=== PATIENT | male | born 1955 | race African-American/Black ===

== ENCOUNTER → 2023-02-02 16:20 | Outpatient (BNVA) | payer OTHER, SELFPAY | PROVIDERS: PCP Registered Nurse; Referring Provider Registered Nurse; Visit Provider Internal Medicine Cardiovascular Disease | DX: R06.02 Shortness of breath (principal) | CPT/HCPCS: 36415; 80048; 83880 ==

== ENCOUNTER 2023-02-12 11:29 | Outpatient (CLI) | payer OTHER, SELFPAY ==
--- NOTE | 2023-02-12 12:15 | USCV_ITS ---
Dustin Quintero Age: 67 Gender: M : 1955 Exam Date: 02/12/2023 11:58 Ordering Phys: Liam Phipps MD ([email or web address]) Technologist: JESSICA [place] [facility] [place] SHORTNESS OF BREATH AND HTN BP: 172 / 94 HR: 79 Rhythm: Sinus Technical Quality: Adequate MEASUREMENTS (Male / Female) Normal Values 2D ECHO LVOT Diameter 2.0 cm LV Ejection Fraction MOD 2C 62.6 % LV Ejection Fraction 2C AL 68.1 % LA Diameter 3.7 cm LA Width 3.3 cm LA Height 4.3 cm RA Width 3.2 cm RA Height 4.9 cm Aorta at Sinotubular Diameter 2.3 cm IVC Diameter 1.6 cm M-MODE Aortic Annulus Diameter 3.1 cm LA Ao Ratio MM 1.1 MV E Point Septal Separation 0.5 cm DOPPLER AV Peak Velocity 170.3 cm/s LVOT Peak Velocity 102.0 cm/s AV Area Cont Eq vti 1.7 cm squared AV Area Cont Eq pk 1.9 cm squared MV Peak Velocity 108.0 cm/s MV Area PHT 4.4 cm squared Mitral E to A Ratio 0.9 MV E' Velocity 48.5 cm/s Mitral E to MV E' Ratio 7.5 Mitral E to LV E' Lateral Ratio 7.7 Mitral E to LV E' Septal Ratio 7.4 TR Peak Velocity 210.4 cm/s TR Peak Gradient 17.7 mmHg TR Mean Velocity 171.9 cm/s TR Mean Gradient 12.5 mmHg TR Velocity Time Integral 54.4 cm TV Peak E Velocity 48.0 cm/s Right Atrial Pressure 3.0 mmHg Pulmonary Artery Systolic Pressu 20.7 mmHg PV Peak Velocity 100.0 cm/s RV Acceleration Time 0.2 s RV Ejection Time 0.3 s RV AcT/ET 0.6 FINDINGS Left Ventricle Normal left ventricular size and systolic function, EF 64 %. No regional wall motion abnormalities. Grade I/IV diastolic dysfunction (abnormal relaxation filling pattern), normal to mildly elevated filling pressures. Right Ventricle The right ventricle is normal in size and function. Right Atrium The right atrium is normal in size. Left Atrium Mildly increased left atrial size. Mitral Valve Mild mitral valve regurgitation. Aortic Valve No gross abnormalities noted Tricuspid Valve Trace tricuspid valve regurgitation. Pulmonic Valve Pulmonic valve not well visualized. Pericardium Normal pericardium without effusion. Aorta Normal ascending aorta dimension. IVC The inferior vena cava appears normal. CONCLUSIONS Normal left ventricular size and systolic function, EF 64 %. No regional wall motion abnormalities. Grade I/IV diastolic dysfunction (abnormal relaxation filling pattern), normal to mildly elevated filling pressures. Mildly increased left atrial size. Mild mitral valve regurgitation. Trace tricuspid valve regurgitation. There is no pericardial effusion. There are no intracardiac masses. No similar previous studies are available for comparison Dr Liam Phipps MD [facility] (Electronically Signed) Final Date: 12 February 2023 18:04 S
== END 2023-02-12 11:30 | disposition home or self-care (01) ==
PROVIDERS: PCP Registered Nurse; Visit Provider Internal Medicine Cardiovascular Disease
DX: R06.09 Other forms of dyspnea (principal); R06.02 Shortness of breath; I51.89 Other ill-defined heart diseases; I51.7 Cardiomegaly; I34.0 Nonrheumatic mitral (valve) insufficiency; I10 Essential (primary) hypertension
CPT/HCPCS: 93306

== ENCOUNTER 2024-04-17 13:00 | Emergency (ER) | payer OTHER, SELFPAY ==
[2024-04-17 13:01] VITALS: BP 168/100; PULSE 102; TEMP 36.6; O2SAT 97; BMI 23.5
--- NOTE | 2024-04-17 13:07 | ECG_ITS ---
[employer] Test Date: 2024-04-17 Pat Name: Dustin Quintero Department: Room: Gender: Male Plc Technician: : 1955 Requested By: Edwin Mancuso Order Number: [id number] Cleo MD: LAURA WHITE Measurements Intervals [place] Rate: 88 P: 68 PA: 174 QRS: 4 QRSD: 95 T: 29 QT: 366 QTc: 444 Interpretive Statements SINUS RHYTHM WITH OCCASIONAL VENTRICULAR PREMATURE COMPLEXES INCOMPLETE RIGHT BUNDLE BRANCH BLOCK [90+ ms QRS DURATION, TERMINAL R IN V1/V2, 40+ ms S IN I/aVL/V4/V5/V6] NONSPECIFIC T-WAVE ABNORMALITY No previous ECG available for comparison Electronically Signed On 04-17-2024 18:53:24 ENERGY CONSERVATION DIRECTOR by LAURA WHITE [id number]
--- NOTE | 2024-04-17 13:08 | ED_ITS ---
HPI - Syncope 2 General: Chief Complaint: Syncope Stated Complaint: syncope Time Seen by Provider: 04/17/24 13:04 Source: patient and EMS Mode of arrival: EMS History of Present Illness: This patient was transported from his workplace after suffering a witnessed episode of syncope. It was noted by coworkers that he appeared to be sweaty and then had an episode of loss of consciousness and was noted to have foaming of his mouth. There was no shaking or seizure activity reported to EMS. EMS arrived on scene found him to be awake in sinus rhythm and had a normal blood glucose. He was transported to the emergency department. Patient states he has been working a lot and is tired. He denies any recent illness. He currently denies any headache, chest pain, shortness of breath. He states he ate and drank this morning. He states he has taken his normal blood pressure medicine this morning but has not taken his midday blood pressure medications. He has not a tobacco user and denies any alcohol use. Had prior back surgery but no other significant hospitalizations. Denies any history of syncope in the past. Denies any focal numbness weakness difficulty with speech etc. Denies any history of a seizure disorder. States he has been sleeping normally. Description of event: incontinence Prodromal symptoms: diaphoresis Witnessed: Yes - by Bystander Associated symptoms: Reports no associated symptoms; Deny abdominal pain, chest pain, fever(s), headache(s) or nausea Treatments prior to arrival: none Related Data Home Medications Medication Instructions Recorded Confirmed amlodipine 10 mg tablet 10 mg PO DAILY 02/02/23 04/17/24 lisinopril 10 mg tablet 10 mg PO DAILY 02/02/23 04/17/24 metformin 1,000 mg tablet 1,000 mg PO DAILY 02/02/23 04/17/24 glipizide 10 mg tablet, extended 10 mg PO DAILY 04/17/24 04/17/24 release 24 hr losartan 100 1 tab PO DAILY 04/17/24 04/17/24 mg-hydrochlorothiazide 25 mg tablet Previous Rx's Medication Instructions Recorded hydralazine 25 mg tablet 25 mg PO TID #90 tabs 02/02/23 Allergies Allergy/AdvReac Type Severity Reaction Status Date / Time No Known Allergies Allergy Unverified 02/02/23 12:21 Review of Systems 2 Const: Denies: fever(s) or chills Eyes: Denies: change in vision ENMT: Denies: odynophagia, nasal discharge or nasal congestion Card: Reports: syncope; Denies: chest pain or palpitations Resp: Denies: dyspnea, productive cough or non-productive cough GI: Denies: abdominal pain, nausea, vomiting, hematemesis, diarrhea or melena : Denies: flank pain, difficulty urinating, dysuria or urinary frequency Musc: Denies: neck pain, back pain, extremity pain or extremity swelling Skin/Breast: Denies: rash Neuro: Denies: headache(s), numbness in extremities, weakness in extremities, confusion or Slurred speech present Thomas/Lymph: Denies: easy bruising or easy bleeding PFSH ED 2 PFSH: Medical History Diabetes Physical Exam 2 Narrative: EXAM NARRATIVE: The patient is alert in no acute distress makes good eye contact. Answers questions and declarative 2-3 word sentences but accurate answers. Const: COMMON NORMALS: no acute distress, average body habitus and healthy appearing GENERAL APPEARANCE: cooperative HENMT: COMMON NORMALS: atraumatic, Normal nasal mucous membranes and turbinates present, moist oral mucous membranes and oropharynx normal HEAD & SCALP: atraumatic FACE & SINUS: normal facial exam and face symmetric N OSE: Normal nasal mucous membranes and turbinates present Eye: COMMON NORMALS: Equal, round and reactive pupils present, EOMs intact bilaterally and conjunctivae normal CONJUNCTIVA: Yes conjunctivae normal P UPIL: Yes Equal, round and reactive pupils present Neck/C-Spine: COMMON NORMALS: full ROM and no lymphadenopathy CERVICAL SPINE: Yes cervical ROM normal, No Cervical spine tenderness, No step off deformity, No Paracervical muscle tenderness and No Trapezius muscle tenderness Chest: COMMONS NORMALS: normal inspection of the chest and normal palpation of entire chest wall Resp: COMMON NORMALS: normal respiratory effort, No retractions, No use of accessory muscles and clear to auscultation bilaterally AUSCULTATION: clear to auscultation bilaterally Cardio: COMMON NORMALS: regular rate, regular rhythm, No murmurs present (Cardio) and Peripheral pulses 2+ throughout RATE: regular rate RHYTHM: r egular rhythm PERIPHERAL PULSES: Peripheral pulses 2+ throughout GI: COMMON NORMALS: Normal to inspection, nondistended, normoactive bowel sounds present, Soft to palpation and non-tender INSPECTION: Yes central obesity PALPATION: Yes Soft to palpation and Yes Hernia present umbilical (Nontender nonprotuberant) : COMMON NORMALS: Yes no CVA tenderness BLADDER/KIDNEY EXAM: Yes no CVA tenderness Back/Pelvis: COMMON NORMALS: no CVA tenderness, thoracic and lumbar spine normal to inspection, no thoracic nor lumbar tenderness and thoraco-lumbar ROM normal Extremity: COMMON NORMALS: normal to inspection, full ROM, capillary refill normal, no joint enlargement and no calf tenderness Neuro: COMMON NORMALS: moves all extremities, no focal motor deficits and no sensory deficits noted CRANIAL NERVES: Yes CN normal except as noted S PEECH: speech normal Skin: COMMON NORMALS: no rashes or lesions noted, no wounds, turgor normal and no petechiae GENERAL SKIN EXAM: no rashes or lesions noted and turgor normal Course 2 Reevaluation(s): Reevaluation #1: Initial labs noted to be remarkable for slight elevation in troponin without EKG changes as well as an elevation in his BUN/creatinine ratio with some mild KAYLEIGH. Nurse also reports that EMS told her that he did have a history of hypercoagulability or DVT in the past. Will go ahead and add on D-dimer as well as give him a liter of IV fluids and reassess. Obviously have to trend his troponins to ensure there is no evidence of ACS. Time: 14:12 Reevaluation #2: Patient remained stable received IV fluids and continued observation without any evidence of arrhythmia. He ambulated unaided without any difficulty with normal gait. All tests were reviewed both he and his family and he is stable to be discharged at this time for outpatient follow-up with good return precautions reviewed. Time: 17:15 Vital Signs: Vital signs: Vital Signs Temperature 97.8 F 04/17/24 13:01 Pulse Rate 93 04/17/24 16:00 Blood Pressure 155/82 04/17/24 16:00 Pulse Oximetry 97 04/17/24 16:00 Oxygen Delivery Me thod Room Air 04/17/24 16:00 MDM - Syncope Medical Decision Making Patient presented as noted in the HPI. Patient sounds like he had a syncopal episode with some resultant short-term seizure activity and loss of continence without any history of seizure disorder. Workup and differential included potential causes to include arrhythmia, profound anemia, intercranial hemorrhage, volume depletion etc. Patient has no current medical records within this facility. Workup of sickle cell trait. No history of thalassemia either and so it is unknown whether this is an acute or chronic anemia although his RDW would suggest this is more chronic in nature as he had no history of hematochezia or melena etc. No evidence of arrhythmia, as ACS were noted while in the emergency department. His CT scan was reassuring as well without any evidence of intracranial hemorrhage or obvious mass effect etc. patient remained stable while in the emergency department. It was all reviewed in detail with the patient and his family who arrived later in the visit. He is suitable and safe for discharge at this time to have outpatient recheck in 1 week for repeat chemistry as well as CBC. We also discussed return precautions. Advised to increase fluid intake to help ensure that he does not continue to be volume depleted with his antihypertensive regimen. Medical Records Was notable that he had elevation in his BUN and creatinine without any background or basis to determine if this is acute process or chronic in nature however his BUN suggest that he had some volume depletion. He also had a mild anemia with decreased indices and review of this with the patient and the family revealed there was no history of sickle cell trait. No history of thalassemia either and so it is unknown whether this is an acute or chronic anemia although his RDW would suggest this is more chronic in nature as he had no history of hematochezia or melena etc. No evidence of arrhythmia, as ACS were noted while in the emergency department. His CT scan was reassuring as well without any evidence of intracranial hemorrhage or obvious mass effect etc.h Lab Data I reviewed the patient's lab results. 04/17/24 13:17 04/17/24 13:17 Radiology Impressions Chest X-Ray 04/17/24 13:18 Impression: Atherosclerosis. Head CT 04/17/24 13:18 IMPRESSION: 1. No acute intracranial hemorrhage or edema. 2. Mild cerebral atrophy and small vessel ischemic disease. No large territory infarct. Laboratory Results WBC 6.65 10^3/uL (3.29-11.43) 04/17/24 13:17 RBC 5.36 10^6/uL (3.85-5.65) 04/17/24 13:17 Hgb 10.60 g/dL (11.27-16.99) L 04/17/24 13:17 Hct 35.4 % (37-53) L 04/17/24 13:17 MCV 66.0 fl (82-101) L 04/17/24 13:17 MCH 19.8 pg (27-33) L 04/17/24 13:17 MCHC 29.9 g/dL (30-55) L 04/17/24 13:17 RDW 14.8 % (12.1-15.1) 04/17/24 13:17 Plt Count 264 10^3/cmm (157-399) 04/17/24 13:17 MPV 9.8 fL (7.4-10.4) 04/17/24 13:17 Neut % (Auto) 64.0 % 04/17/24 13:17 Lymph % (Auto) 25.3 % 04/17/24 13:17 [place] % (Auto) 8.7 % 04/17/24 13:17 Eos % (Auto) 1.1 % 04/17/24 13:17 Baso % (Auto) 0.6 % 04/17/24 13:17 Neut # (Auto) 4.26 10^3/uL (1.8-7.7) 04/17/24 13:17 Lymph # (Auto) 1.7 10^3/uL (0.8-4.8) 04/17/24 13:17 [place] # (Auto) 0.6 10^3/uL (0.2-0.9) 04/17/24 13:17 Eos # (Auto) 0.1 10^3/uL (0.0-0.8) 04/17/24 13:17 Baso # (Auto) 0.0 10^3/uL (0.0-0.1) 04/17/24 13:17 Nucleated RBC % (auto) 0 % 04/17/24 13:17 Nucleated RBCs # 0.0 /100WBC 04/17/24 13:17 D-Dimer 0.47 ug/mLFEU (0-0.59) 04/17/24 14:33 Sodium 135 mmol/L (136-145) L 04/17/24 13:17 Potassium 4.1 mmol/L (3.5-5.1) 04/17/24 13:17 Chloride 100 mmol/L (98-107) 04/17/24 13:17 Carbon Dioxide 22 mmol/L (22-29) 04/17/24 13:17 Anion Gap 17.1 (5-19) 04/17/24 13:17 BUN 29 mg/dL (8-23) H 04/17/24 13:17 Creatinine 1.4 mg/dL (0.7-1.2) H 04/17/24 13:17 GFR Calculation 61.0 mL/min (90-130) L 04/17/24 13:17 Glucose 150 mg/dL (65-115) H 04/17/24 13:17 Calculated Osmolality 289 mOsm/kg (285-295) 04/17/24 13:17 Calcium 9.0 mg/dL (8.5-10.5) 04/17/24 13:17 Total Bilirubin 0.3 mg/dL (0.15-1.2) 04/17/24 13:17 AST 15 U/L (0-40) 04/17/24 13:17 ALT 12 U/L (0-41) 04/17/24 13:17 Alkaline Phosphatase 58 U/L (40-130) 04/17/24 13:17 Troponin T Baseline 21 ng/L (0-15) H 04/17/24 13:17 Troponin T 120 Minute 17.76 ng/L (0-15) H 04/17/24 15:03 Delta Troponin T -3.24 ABS# (0-10) L 04/17/24 15:03 Total Protein 6.8 g/dL (6.6-8.7) 04/17/24 13:17 Albumin 4.1 g/dL (3.5-5.2) 04/17/24 13:17 Globulin 2.7 g/dL (1.3-4.6) 04/17/24 13:17 All radiology interpretation(s) finalized by discharge EKG Data EKG 1: I personally reviewed and interpreted this EKG as follows: Interpretation: Contemporaneous review of resting EKG reveals ventricular rate of 88 bpm consistent with sinus rhythm. Normal RI interval, QRS duration, corrected QT interval. Normal axis. No acute ST-T wave changes noted at this time. EKG 2: I personally reviewed and interpreted this EKG as follows: Interpretation: Second EKG this visit reveals a ventricular rate of 100 bpm. Has normal RI interval, QRS duration, corrected QT interval. Normal axis. Borderline sinus tachycardia without any dynamic changes from previous tracing. Discharge Plan Discharge Patient Disposition: Home Clinical Impression: Volume depletion Syncope Qualifiers: Syncope type: unspecified Qualified Code(s): R55 - Syncope and collapse Anemia Qualifiers: Anemia type: unspecified type Qualified Code(s): D64.9 - Anemia, unspecified Condition: Stable Prescriptions: No Action amlodipine 10 mg tablet 10 mg PO DAILY metformin 1,000 mg tablet 1,000 mg PO DAILY lisinopril 10 mg tablet 10 mg PO DAILY hydralazine 25 mg tablet 25 mg PO TID Qty: 90 5RF glipizide 10 mg tablet extended release 24hr 10 mg PO DAILY losartan-hydrochlorothiazide 100-25 mg tablet 1 tab PO DAILY Discharge Orders: Discharge ED (Routine); Ordered 04/17/24 Ordered By: Edwin Mancuso Referrals: Amy Ding [Primary Care Provider] - 1 week Discharge Diet: Usual diet Discharge Activity: Increase activity as tolerated Patient Instructions: Opioid Safety, Pain Management Activity Restrictions/Additional Instructions: As we discussed while you are in the emergency department you have a mild anemia which is undetermined whether it is a chronic condition for you or something new. For this reason it is important that you recheck with your doctor next week to have another blood test performed. You also have evidence that your kidney function is abnormal and this should also be tested at your doctor in 1 week. You should drink at least 2 quarts of water daily in addition to your other intake and take all your usual prescribed medication. If you develop any recurrent symptoms such as lightheadedness dizziness, blood in your stools black tarry stools or other concerns at any time you should return to this or the nearest emergency department immediately otherwise you should see your doctor in 1 week. Coding Level of Care Code ED At Risk Paraprofessional for Meek [employer]
--- NOTE | 2024-04-17 13:18 | CT_ITS ---
WS: [id number] CT HEAD NONCONTRAST HISTORY: syncope and fall TECHNIQUE: Contiguous axial imaging performed through the brain. Bone and soft tissue windows. Sagitt al and coronal reformats reviewed. All CT scans at [facility] use at least one of these dose optimization techniques: automated exposure control; mA and/or kV adjustment per patient size (includ es targeted exams where dose is matched to clinical indication); or iterative reconstruction. DLP: 1125.98 mGy.cm COMPARISON: None available. No acute intracranial hemorrhage, midline shift or mass effect. Mild symmetric edema and small vessel disease. No focal edema or acute infarct identified. Ventricles: Normal size with no hydrocephalus. No inferior displacement of the cerebellar tonsils. Paranasal sinuses: As visualized are clear. Mastoid air cells: Well pneumatized. Calvarium and scalp: Skull is intact with no soft tissue edema or swelling. CT/CT head wo con* [id number] IMPRESSION: 1. No acute intracranial hemorrhage or edema. 2. Mild cerebral atrophy and small vessel ischemic disease. No large territory infarct.
--- NOTE | 2024-04-17 13:18 | XR_ITS ---
WS: [id number] Portable AP upright chest, 04/17/2024 Clinical Data: syncope Comparison: None. Findings: No nodules, masses or effusions are seen. The heart is normal. The pulmonary vascularity is not increased. No pneumonia or pneumothorax is seen. There is elevation of the right diaphragm. Kiara tor leads are on the chest wall. The aortic arch and descending thoracic aorta show mild tortuosity. XR/XR chest 1V portable [id number] Impression: Atherosclerosis.
[2024-04-17 13:31] LABS: Basophils % 0.6 %; Eosinophils # 0.1 10^3/uL (0.0-0.8); Eosinophils % 1.1 %; Hematocrit 35.4 % (37-53); Lymphocytes # 1.7 10^3/uL (0.8-4.8); Lymphocytes % 25.3 %; Mean Corpuscular HGB Conc 29.9 g/dL (30-55); Mean Corpuscular Hemoglobin 19.8 pg (27-33); Mean Platelet Volume 9.8 fL (7.4-10.4); Monocytes # 0.6 10^3/uL (0.2-0.9); Monocytes % 8.7 %; Neutrophils # 4.26 10^3/uL (1.8-7.7); Nucleated Red Blood Cells % 0 %; Platelet Count 264 10^3/cmm (157-399); Red Blood Count 5.36 10^6/uL (3.85-5.65); Red Cell Distribution Width 14.8 % (12.1-15.1); White Blood Count 6.65 10^3/uL (3.29-11.43)
[2024-04-17 13:49] LABS: Alanine Aminotransferase 12 U/L (0-41); Albumin Level 4.1 g/dL (3.5-5.2); Alkaline Phosphatase 58 U/L (40-130); Anion Gap 17.1 (5-19); Aspartate Amino Transferase 15 U/L (0-40); Blood Urea Nitrogen 29 mg/dL (8-23); Carbon Dioxide 22 mmol/L (22-29); Chloride 100 mmol/L (98-107); Creatinine Clr Calc Pharmacy 47.7683; Globulin 2.7 g/dL (1.3-4.6); Glucose 150 mg/dL (65-115); Osmolality Calculated 289 mOsm/kg (285-295); Potassium 4.1 mmol/L (3.5-5.1); Sodium 135 mmol/L (136-145); Total Bilirubin 0.3 mg/dL (0.15-1.2); Total Protein 6.8 g/dL (6.6-8.7)
[2024-04-17 13:54] LABS: Troponin(5th) Baseline 21 ng/L (0-15)
[2024-04-17] MEDS: sodium chloride 0.9% 1,000 ML 999 ML IV (14:23)
[2024-04-17 14:26] VITALS: BP 164/92; PULSE 100; O2SAT 99
[2024-04-17 14:54] LABS: D Dimer 0.47 ug/mLFEU (0-0.59)
[2024-04-17 15:00] VITALS: BP 156/89; PULSE 95; O2SAT 99
--- NOTE | 2024-04-17 15:18 | ECG_ITS ---
[facility]: [facility]24-[facility]17 Pat Name: Dustin Quintero Department: Room: Gender: Male Electrical Development Engineer: : 1955 Requested By: Edwin Mancuso Order Number: [id number] Reading MD: LAURA WHITE Measurements Intervals [place] Rate: 100 P: 61 SC: 172 QRS: -1 QRSD: 97 T: 43 QT: 339 QTc: 438 Interpretive Statements SINUS TACHYCARDIA INCOMPLETE RIGHT BUNDLE BRANCH BLOCK [90+ ms QRS DURATION, TERMINAL R IN V1/V2, 40+ ms S IN I/aVL/V4/V5/V6] ABNORMAL RHYTHM ECG Compared to ECG 04/17/2024 13:04:51 Sinus rhythm no longer present Ventricular premature complex(es) no longer present T-wave abnormality no longer present Electronically Signed On 04-17-2024 19:28:23 SEWER PIPE PRESS OPERATOR by LAURA WHITE [email or web address]
[2024-04-17 16:00] VITALS: BP 155/82; PULSE 93; O2SAT 97
[2024-04-17 16:25] LABS: Troponin 5 2HR 17.76 ng/L (0-15)
[2024-04-17 16:27] LABS: Troponin 5 2HR Delta -3.24 ABS# (0-10)
[2024-04-17 17:14] VITALS: BP 143/93; PULSE 98; RESP 12; O2SAT 99
[2024-04-19 12:08] LABS: Glucose Point of Care 154 mg/dL (70-110)
== END 2024-04-17 17:15 | disposition home or self-care (01) ==
PROVIDERS: Emergency Provider Emergency Medicine; PCP Registered Nurse
DX: R55 Syncope and collapse (principal); D64.9 Anemia, unspecified; Z79.84 Long term (current) use of oral hypoglycemic drugs; E11.9 Type 2 diabetes mellitus without complications
CPT/HCPCS: 36416; 70450; 71045; 80053; 82962; 84484; 85025; 85378; 93005; 99285; J7030